=== PATIENT | female | born 1985 | race Caucasian/White ===

== ENCOUNTER 2024-01-24 12:28 | Emergency (ER) | payer MEDICAID, SELFPAY ==
[2024-01-24 12:34] VITALS: BP 129/87; PULSE 79; RESP 18; TEMP 36.6; O2SAT 98; BMI 41.1
--- NOTE | 2024-01-24 12:55 | ED.GENADULT ---
HPI - General Adult General Chief complaint: Head Injury/Pain Stated complaint: Migraine Time Seen by Provider: 01/24/24 12:31 History of Present Illness HPI narrative: This 38-year-old female comes in reporting migraine headache. She gets migraine headaches more typically around time of her menses. She states that she benefits when she treats her migraine with Imitrex. She has run out of this medicine. She states that the migraine headache currently started 2 days ago and seems to come and go. She has taken ibuprofen with some relief but this did not help her today. Related Data Home Medications ?Medication ?Instructions ?Recorded ?Confirmed sumatriptan succinate 50 mg tablet 50 mg PO Q2H PRN migraine 01/24/24 01/24/24 Previous Rx's ?Medication ?Instructions ?Recorded sumatriptan succinate 50 mg tablet 50 mg PO Q2-4H PRN migraine 01/24/24 (Imitrex) headache #10 tabs Allergies Allergy/AdvReac Type Severity Reaction Status Date / Time prochlorperazine Allergy Verified 01/24/24 12:37 [From Compazine] Review of Systems Status of ROS: Reports: 10 or more systems reviewed and unremarkable except as noted in History and below Narrative: Constitutional: No fevers, no weight gain or loss. Eyes: No discharge. No vision changes. HENT: No congestion, no sore throat, no ear pain. Cardiovascular: No chest pain, no palpitations. Respiratory: No shortness of breath, no wheezes, no cough. Gastrointestinal: No abdominal pain, no vomiting, no diarrhea. Genitourinary: No dysuria, no hematuria. Musculoskeletal: Normal range of motion. Skin: No rashes, no pruritis. Neurological: No dizziness, weakness, sensory change, speech change. Endo/Heme/Allergies: No bruising or bleeding. No polydipsia. Pysch: no suicidality, no anxiety, no insomnia. All other systems reviewed and are negative. PFSH PFSH Social History Smoking Status: Never smoker Non-prescribed substance use: denies use Exam Narrative: Exam Narrative: Constitutional: Well-developed, well-nourished. HEENT: Normocephalic, atraumatic. Neck: Normal range of motion. Nontender. Supple. Heart: Intact distal pulses. Lungs: No chest discomfort. No wheezes, rhonchi, or rales. Abdomen: Nontender. Back: Normal range of motion. Extremities: Normal range of motion. No injury. Skin: Intact. No rash. Warm. No erythema or pallor. Neurologic: No altered sensation. No weakness. Alert and oriented. Psychiatric: No suicidality. No anxiety or depression. No insomnia. Nursing notes and vitals signs are reviewed. Const: Vital Signs, click to edit/add: Vital Signs - 24 hr 01/24/24 12:34 Temperature 97.8 F Pulse Rate [Right Pulse Oximeter] 79 Respiratory Rate 18 Blood Pressure [Ri ght Upper Arm] 129/87 Pulse Oximetry 98 Oxygen Delivery Me thod Room Air Course Vital Signs Vital signs: Initial Vital Signs Temperature 97.8 F 01/24/24 12:34 Temperature Source Temporal Artery Scan 01/24/24 12:34 Pulse Rate 79 01/24/24 12:34 Respiratory Rate 18 01/24/24 12:34 Blood Pressure 129/87 01/24/24 12:34 Blood Pressure Mean 101 01/24/24 12:34 Blood Pressure Position Sitting 01/24/24 12:34 Pulse Oximetry 98 01/24/24 12:34 Oxygen Delivery Method Room Air 01/24/24 12:34 Vital Signs Temperature 97.8 F 01/24/24 12:34 Pulse Rate 79 01/24/24 12:34 Respiratory Rate 18 01/24/24 12:34 Blood Pressure 129/87 01/24/24 12:34 Pulse Oximetry 98 01/24/24 12:34 Oxygen Delivery Method Room Air 01/24/24 12:34 Temperature 97.8 F 01/24/24 12:34 Pulse Rate 79 01/24/24 12:34 Respiratory Rate 18 01/24/24 12:34 Blood Pressure 129/87 01/24/24 12:34 Pulse Oximetry 98 01/24/24 12:34 Oxygen Delivery Method Room Air 01/24/24 12:34 Medications Administered Medications: Discontinued Medications Generic Name Dose Route Start Last Admin Trade Name Freq PRN Reason Stop Dose Admin Sumatriptan Succinate 50 mg 01/24/24 12:55 01/24/24 13:20 Sumatriptan Succinate 50 Mg Tablet PO 01/24/24 12:56 50 mg ONCE ONE Administration Medical Decision Making MDM Narrative Medical decision making narrative: This patient comes in with migraine headache that is typical for her. She states that she ran out of her Imitrex about a month ago and gets headaches like this typically on a monthly basis related to her menstrual cycle. She received an oral tablet of Imitrex 50 mg and this brought great relief to her symptoms. She is okay to be discharged home and I did provide a prescription for Imitrex. Discharge Plan Discharge Clinical Impression: Migraine Patient Disposition: Home, Self-Care Condition: Improved Additional Instructions: Continue current plans. Use medication as needed and directed. Follow up with MD return if worsening. Prescriptions: New sumatriptan succinate [Imitrex] 50 mg tablet 50 mg PO Q2-4H PRN (Reason: migraine headache) Qty: 10 2RF Rx Instructions: do not exceed 4 doses per 24 hrs No Action sumatriptan succinate 50 mg tablet 50 mg PO Q2H PRN (Reason: migraine) Follow Up/Referrals: Provider,Not a Local [Primary Care Provider] - Stand Alone Forms: [facility] [employer] Info Instructions
[2024-01-24] MEDS: SUMAtriptan succinate 50 MG TABLET PO (13:20)
== END 2024-01-24 14:01 | disposition home or self-care (01) ==
PROVIDERS: Emergency Provider Emergency Medicine Emergency Medical Services
DX: G43.909 Migraine, unspecified, not intractable, without status migrainosus (principal)
CPT/HCPCS: 99283; 99284; A9270